=== PATIENT | male | born 1960 | race Caucasian/White ===

== ENCOUNTER 2022-08-03 14:18 | Emergency (ER) | payer MEDICAID, MEDICARE ==
[2022-08-03 15:52] LABS: ESTIMATED GFR 86 mL/min (>60)
== END 2022-08-03 17:47 ==
LOC: JP.ED 14:18
DX: S06.0X0A Concussion without loss of consciousness, initial encounter (principal); E78.00 Pure hypercholesterolemia, unspecified; I10 Essential (primary) hypertension; Z86.73 Personal history of transient ischemic attack (TIA), and cerebral infarction without residual deficits; Z79.899 Other long term (current) drug therapy; Z87.891 Personal history of nicotine dependence
CPT/HCPCS: 36415; 70450; 80053; 81001; 83605; 85025; 99283; 99285

== ENCOUNTER 2022-08-07 15:40 | Emergency (ER) | payer MEDICAID ==
[2022-08-07] MEDS ORDERED: Ketorolac 30 MG/ML SDV IM ONE (16:13)
[2022-08-07] MEDS ORDERED: Ondansetron 4 MG Tab.DIS PO ONE (16:15)
== END 2022-08-07 17:40 ==
LOC: JP.ED 15:40
DX: S06.0X0A Concussion without loss of consciousness, initial encounter (principal); S00.03XA Contusion of scalp, initial encounter; M25.511 Pain in right shoulder; M25.512 Pain in left shoulder; M54.2 Cervicalgia; E78.00 Pure hypercholesterolemia, unspecified; I10 Essential (primary) hypertension; Z79.84 Long term (current) use of oral hypoglycemic drugs; Z79.899 Other long term (current) drug therapy; M54.50 Low back pain, unspecified; W18.30XA Fall on same level, unspecified, initial encounter
CPT/HCPCS: 70450; 72125; 76377; 96372; 99283; J1885; Q0162